=== PATIENT | female | born 1970 | race Caucasian/White ===

== ENCOUNTER 2016-08-13 18:35 | Emergency (ER) | payer SELFPAY ==
[~2016-08-13] VITALS: Ht 157.5 cm; Wt 55.0 kg
[2016-08-13 18:40] VITALS: BP 120/86; PULSE 108; RESP 20; TEMP 98; O2SAT 99
[2016-08-13] MEDS ORDERED: Anxiety med (18:51)
[2016-08-13] MEDS ORDERED: ZOLO100T PO (18:51)
[2016-08-13] MEDS ORDERED: SERO100T PO (18:51)
--- NOTE | 2016-08-13 18:56 | PD ---
HPI . Right great toe pain since 3 PM today Chief Complaint: Injury Time Seen by Provider: 18:56 Travel History International Travel<30 days: No Contact w/Intl Traveler<30days: No Traveled to known affect area: No History of Present Illness HPI 46-year-old female with anxiety and depression here with complaints of left great toe pain since about 3 PM this afternoon. Apparently patient stubbed her toe and now has some difficulty walking. She tells me that the pain is intense concerned because she has to go to work tomorrow. She does work at [employer] and tells me that she stands for a large portion of the day. The pain is localized to the left great toe and does not radiate. She denies any loss of consciousness or syncopal episode. At the time of examination patient denies any fever, chills, chest pain, nausea, vomiting, diaphoresis or abdominal pain. PFSH Past Medical History Medical History: Denies Significant Hx Tetanus Vaccination: < 5 Years Influenza Vaccination: No ?: Not LMP: 3 WEEKS AGO Past Surgical History Surgical History: No Previous Surgery Social History Alcohol Use: Yes (Occ.) Tobacco Use: Yes (/2 PPD) Substance Use: No Allergies-Medications (Allergen,Severity, Reaction): Coded Allergies: Motrin (Verified Adverse Reaction, Mild, STATES ON LITHIUM AND CANNOT TAKE , 08/13/16) Reported Meds & Prescriptions Reported Meds & Active Scripts Active Reported [Anxiety med] Seroquel (Quetiapine Fumarate) 100 Mg Tab 100 Mg PO HS Zoloft (Sertraline HCl) 100 Mg Tab 100 Mg PO DAILY Review of Systems General / Constitutional: No: Fever Eyes: No: Visual changes HENT: No: Headaches Cardiovascular: No: Chest Pain or Discomfort Respiratory: No: Shortness of Breath Gastrointestinal: No: Abdominal Pain Genitourinary: No: Dysuria Musculoskeletal: Positive: Pain (left great toe pain) Skin: No Rash Neurologic: No: Weakness Psychiatric: No: Depression Endocrine: No: Polydipsia Hematologic/Lymphatic: No: Easy Bruising Physical Exam Narrative GENERAL: AAO x 3, no acute distress, Well-nourished, well-developed patient. Patient smells like alcohol. SKIN: Warm and dry. No visible rashes or bruising. HEAD: Normocephalic and atraumatic. EYES: No scleral icterus. No injection or drainage. ENT: No nasal drainage noted. Mucous membranes pink. Airway patent. NECK: Supple, trachea midline. No JVD. CARDIOVASCULAR: Regular rate and rhythm without murmurs, gallops, or rubs. RESPIRATORY: Breath sounds equal bilaterally. No accessory muscle use. No rhonchi or rales. GASTROINTESTINAL: Abdomen soft, non-tender, nondistended. EXTREMITIES: No cyanosis or edema. Left great toe erythema and point tenderness. BACK: Nontender without obvious deformity. No CVA tenderness. PSYCH: AAO x 3, normal affect. Data Data Last Documented VS Vital Signs Date Time Temp Pulse Resp B/P Pulse Ox O2 Delivery O2 Flow Rate FiO2 08/13/16 18:40 98.0 108 20 120/86 99 Orders Foot, Limited (2vws) (08/13/16 19:04) MDM Medical Decision Making Medical Screen Exam Complete: Yes Emergency Medical Condition: Yes Medical Record Reviewed: Yes Differential Diagnosis Left great toe contusion, left great toe fracture,left great toe cellulitis Narrative Course 46-year-old female with anxiety and depression here with complaints of left great toe pain since about 3 PM this afternoon. Apparently patient stubbed her toe and now has some difficulty walking. She tells me that the pain is intense concerned because she has to go to work tomorrow. She does work at [employer] and tells me that she stands for a large portion of the day. The pain is localized to the left great toe and does not radiate. She denies any loss of consciousness or syncopal episode. At the time of examination patient denies any fever, chills, chest pain, nausea, vomiting, diaphoresis or abdominal pain. Patient seen and examined. Recommend x-ray of the left foot. X-ray without any acute abnormality. Discussed with patient. Advised that she can use Tylenol or Motrin as needed for pain. Patient verbalized understanding of instructions, questions were answered, and thanked me for their care. I advised them if their condition worsens, please return to the nearest emergency room for further care. Diagnosis Primary Impression: Toe pain, left Patient Instructions: General Instructions, Toe Fracture (ED) Additional Instructions: Please return to emergency department if your symptoms return or worsen. Follow up with your primary care provider. I have provided you with handouts regarding toe fractures. Your toe is NOT fractured, but you can use ICE to help with pain/swelling. You can also take anti-inflammatories to help with the pain. You can take [id number] Tylenol or Motrin as needed for pain. Med/Other Pt SpecificInfo: No Change to Meds Disposition: 01 DISCHARGE HOME Condition: Stable Luz Josue Aug 13, 2016 18:56
--- NOTE | 2016-08-13 19:28 | RADHPO ---
EXAM DATE/TIME: 08/13/2016 19:11 [facility] COMPARISON: No previous studies available for comparison. INDICATIONS : Left foot, great toe pain. Patient states she tripped and kicked a concrete slab. MEDICAL HISTORY : None. SURGICAL HISTORY : None. ENCOUNTER: Initial ACUITY: 1 day PAIN SCORE: 10/10 LOCATION: Left foot. FINDINGS: Two view examination of the left foot demonstrates no soft tissue swelling, dislocation, or fracture. The calcaneus is intact. Bony mineralization is normal. CONCLUSION: No acute disease. Kennedy Dong MD on August 13, 2016 at 19:26 Board Certified Radiologist. This report was verified electronically.
== END 2016-08-13 19:45 | disposition home or self-care (01) ==
LOC: PHEFT 18:35
DX: M79.675 Pain in left toe(s) (principal); F17.210 Nicotine dependence, cigarettes, uncomplicated; W22.8XXA Striking against or struck by other objects, initial encounter; Y99.8 Other external cause status
CPT/HCPCS: 73620; 99283